=== PATIENT | male | born 1960 | race Two or more races ===

== ENCOUNTER 2017-09-13 06:09 | Emergency (ER) | payer OTHER ==
[~2017-09-13] VITALS: Ht 170.2 cm; Wt 79.4 kg
[~2017-09-13 06:09] MED LIST: IBU800T
[2017-09-13 06:23] VITALS: BP 157/96
== END 2017-09-13 07:44 | disposition home or self-care (01) ==
LOC: ER 06:12
DX: M54.9 Dorsalgia, unspecified (principal); E78.5 Hyperlipidemia, unspecified; F17.210 Nicotine dependence, cigarettes, uncomplicated; Z90.49 Acquired absence of other specified parts of digestive tract; V43.52XA Car driver injured in collision with other type car in traffic accident, initial encounter; Y93.89 Activity, other specified; Y99.8 Other external cause status; Y92.89 Other specified places as the place of occurrence of the external cause
CPT/HCPCS: 72128; 72131

== ENCOUNTER 2023-10-21 19:46 | Emergency (ER) | payer OTHER ==
[~2023-10-21] VITALS: Ht 167.6 cm; Wt 87.0 kg
[2023-10-22] MEDS: diphenhdrAMINE HCL 50 MG/1 ML VL IM ONE (00:18)
[2023-10-22] MEDS: PROCHLORPERAZINE EDISYLATE 5 MG/ML 2ML VIAL IM ONE (00:18)
[2023-10-22] MEDS: KETOROLAC TROMETH 60MG/2ML VIAL IM ONE (00:20)
[2023-10-22] MEDS: DexAMETHasone SOD PHOS 10MG/1ML VIAL INJ IM ONE (00:22)
[2023-10-22 01:14] VITALS: BP 136/78; PULSE 67; RESP 16; TEMP 98.6; O2SAT 97
== END 2023-10-22 01:19 | disposition home or self-care (01) ==
LOC: ER 19:46
DX: G43.909 Migraine, unspecified, not intractable, without status migrainosus (principal); F17.210 Nicotine dependence, cigarettes, uncomplicated; E78.5 Hyperlipidemia, unspecified; Z90.49 Acquired absence of other specified parts of digestive tract
CPT/HCPCS: 96372; 99284; J0780; J1100; J1200; J1885